=== PATIENT | male | born 1970 | race Caucasian/White ===

== ENCOUNTER 2018-05-09 18:27 | Emergency (ER) | payer OTHER ==
[2018-05-09 20:30] LABS: URINE BILIRUBIN NEGATIVE (NEGATIVE); URINE BLOOD NEGATIVE (NEGATIVE); URINE CLARITY Clear (Clear); URINE COLOR Yellow (YELLOW); URINE GLUCOSE (UA) NORMAL (Normal); URINE LEUKOCYTE ESTERASE TRACE Leu/uL (Negative); URINE PROTEIN NEGATIVE (NEGATIVE); URINE UROBILINOGEN NORMAL mg/dL (0.2-1.0)
[2018-05-09] MEDS ORDERED: cefTRIAXone 250 MG, Lidocaine Hydrochloride 1% 1 ML IM ONE (20:32)
--- NOTE | 2018-05-09 21:00 | C.PDOC ---
History Of Present Illness 47 year old male presents to the ED for evaluation of an itchy rash to bilateral buttocks which began 1-2 days ago. Patient is unsure if he has a possible allergy. Patient also reports has has been experiencing clear, white penile charge over the past week. Patient also reports history of chronic sinus and increased nasal congestion. Patient denies fever, chest pain, shortness of breath, numbness/weakness or change in medicine. Time Seen by Provider: 05/09/18 18:58 Chief Complaint (Nursing): Abnormal Skin Integrity History Per: Patient History/Exam Limitations: no limitations Onset/Duration Of Symptoms: Days (1-2) Current Symptoms Are (Timing): Still Present Quality Of Symptoms: Itching Additional History Per: Patient Past Medical History Reviewed: Historical Data, Nursing Documentation, Vital Signs Vital Signs: Last Vital Signs Temp 99.4 F 05/09/18 21:59 Pulse 80 05/09/18 21:59 Resp 18 05/09/18 21:59 BP 142/82 05/09/18 21:59 Pulse Ox 98 05/10/18 18:59 - Medical History PMH: No Chronic Diseases Surgical History: No Surg Hx Family History: States: Unknown Family Hx - Social History Hx Tobacco Use: No Hx Alcohol Use: Yes Hx Substance Use: No - Immunization History Hx Tetanus Toxoid Vaccination: No Hx Influenza Vaccination: No Hx Pneumococcal Vaccination: No Review Of Systems Constitutional: Negative for: Fever, Chills ENT: Positive for: Nose Congestion, Other (sinus congestion) Cardiovascular: Negative for: Chest Pain Respiratory: Negative for: Shortness of Breath Genitourinary: Positive for: Penile Discharge (clear, white ) Skin: Positive for: Rash (bilateral buttocks ) Physical Exam - Physical Exam Appears: Non-toxic, No Acute Distress Skin: Normal Color, Warm, Dry, Other (urticarial rash to bilateral butt cheeks ) Head: Tenderness (bilateral, maxillary sinus ) Eye(s): bilateral: Normal Inspection Ear(s): Bilateral: Normal Nose: Normal, No Discharge Throat: Normal, No Erythema, No Exudate Neck: Supple Chest: Symmetrical, No Deformity, No Tenderness Cardiovascular: No Murmur Respiratory: Normal Breath Sounds, No Rales, No Rhonchi, No Wheezing Gastrointestinal/Abdominal: Soft, No Tenderness, No Guarding, No Rebound Extremity: Normal ROM, Capillary Refill (less than 2 seconds ) Neurological/Psych: Oriented x3, Normal Speech, Normal Cognition ED Course And Treatment O2 Sat by Pulse Oximetry: 98 (on RA) Pulse Ox Interpretation: Normal Medical Decision Making Medical Decision Making: Progress: Benadryl PO, Rocephin, Zithromax PO, and Prednisone PO given. GC/Chlamydia and urinalysis ordered. Disposition - Disposition Referrals: FAMILY PROVIDER,NO [Primary Care Provider] - Disposition: HOME/ ROUTINE Disposition Time: 21:00 Condition: STABLE Additional Instructions: Follow up with the medical doctor within 1-2 days. return if worsened. 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 - Scribe Statement The provider has reviewed the documentation as recorded by the Scribe (Nicole Epperson) All medical record entries made by the Scribe were at my direction and personally dictated by me. I have reviewed the chart and agree that the record accurately reflects my personal performance of the history, physical exam, medical decision making, and the department course for this patient. I have also personally directed, reviewed, and agree with the discharge instructions and disposition.
[2018-05-09 21:59] VITALS: BP 142/82; PULSE 80; RESP 18; TEMP 99.4
[2018-05-10 18:45] VITALS: O2SAT 98
== END 2018-05-09 21:59 | disposition home or self-care (01) ==
LOC: C.ER 18:27
DX: L50.0 Allergic urticaria (principal); J32.9 Chronic sinusitis, unspecified; N34.2 Other urethritis
CPT/HCPCS: 81001; 87086; 87181; 87491; 87591; 96372; 99283; J0696